=== PATIENT | male | born 1970 ===

== ENCOUNTER 2017-09-25 18:17 | Emergency (ER) | payer OTHER ==
[2017-09-25 18:46] VITALS: BP 136/70; PULSE 89; RESP 20; TEMP 100.6; O2SAT 99
--- NOTE | 2017-09-25 18:59 | ED PDOC ---
HPI: General Adult Time Seen by Provider: 09/25/17 18:21 Chief Complaint (Nursing): Flu-like Symptoms Chief Complaint (Provider): Flu-Like Symptoms History Per: Patient History/Exam Limitations: no limitations Onset/Duration Of Symptoms: Days (x1) Have you had recent travel within the past 21 days to any of the following countries: [place], [place], [place] or [place]?: No Current Symptoms Are (Timing): Still Present Additional Complaint(s): 46 year old male presents to ED with complaints of flu-like symptoms x1 day and a past medical history of HTN. (+) cough, congestion, and fever. (-) hemoptysis , chest pain, SOB, nausea, vomiting, or abdominal pain. Notes that one of his children was recently diagnosed with the flu. States that he has been taking samples of Tamiflu that his acquired from her job. Notes taking 2 and that there are 6 left at home. PCP: Non CPH Past Medical History Reviewed: Historical Data, Nursing Documentation, Vital Signs Vital Signs: Last Vital Signs Temp 100.6 F H 09/25/17 18:44 Pulse 89 09/25/17 18:44 Resp 20 09/25/17 18:44 BP 136/70 09/25/17 18:44 Pulse Ox 99 09/25/17 18:59 - Medical History PMH: HTN Denies: No Chronic Diseases - Family History Family History: States: No Known Family Hx - Living Arrangements Living Arrangements: With Family - Social History Drugs: Denies - Immunization History Hx Tetanus Toxoid Vaccination: No Hx Influenza Vaccination: No Hx Pneumococcal Vaccination: No - Home Medications Home Medications: Ambulatory Orders Medication Instructions Recorded Oseltamivir [Tamiflu] 75 mg PO BID #4 cap 09/25/17 - Allergies Allergies/Adverse Reactions: Allergies Allergy/AdvReac Type Severity Reaction Status Date / Time No Known Allergies Allergy Unverified 06/16/17 06:47 Review of Systems ROS Statement: Except As Marked, All Systems Reviewed And Found Negative Constitutional: Positive for: Fever ENT: Positive for: Nose Congestion Cardiovascular: Negative for: Chest Pain Respiratory: Positive for: Cough. Negative for: Shortness of Breath, Hemoptysis Gastrointestinal: Negative for: Nausea, Vomiting, Abdominal Pain Physical Exam - Reviewed Nursing Documentation Reviewed: Yes Vital Signs Reviewed: Yes - Physical Exam Appears: Positive for: Non-toxic, No Acute Distress Skin: Positive for: Normal Color, Warm, Dry Eye Exam: Positive for: Normal appearance, EOMI, PERRL ENT: Positive for: Normal ENT Inspection Neck: Positive for: Normal, Painless ROM, Supple Cardiovascular/Chest: Positive for: Regular Rate, Rhythm Respiratory: Positive for: Normal Breath Sounds. Negative for: Respiratory Distress Gastrointestinal/Abdominal: Positive for: Soft. Negative for: Tenderness Neurologic/Psych: Positive for: Alert, Oriented - ECG O2 Sat by Pulse Oximetry: 99 (RA) Pulse Ox Interpretation: Normal Medical Decision Making Medical Decision Makin Initial impression: influenza-like illness Scribe Attestation: Documented by Rehsma Enriquez, acting as a scribe for Mauro Garcia PA-C. Provider Scribe Attestation: All medical record entries made by the Scribe were at my direction and personally dictated by me. I have reviewed the chart and agree that the record accurately reflects my personal performance of the history, physical exam, medical decision making, and the department course for this patient. I have also personally directed, reviewed, and agree with the discharge instructions and disposition. Disposition - Clinical Impression Clinical Impression: Influenza-like symptoms - Patient ED Disposition Is Patient to be Admitted: No - Disposition Disposition: Routine/Home Disposition Time: 18:58 Condition: STABLE Prescriptions: Oseltamivir [Tamiflu] 75 mg PO BID #4 cap Instructions: Influenza (ED) Forms: [facility] ED School/Work Excuse
== END 2017-09-25 20:25 | disposition home or self-care (01) ==
LOC: H.ER 18:17
DX: R50.9 Fever, unspecified (principal); R05 Cough; I10 Essential (primary) hypertension

== ENCOUNTER 2018-01-20 20:58 | Emergency (ER) | payer OTHER ==
[2018-01-20 21:40] VITALS: BP 137/78; PULSE 78; RESP 18; TEMP 98.6; O2SAT 99
--- NOTE | 2018-01-20 22:20 | ED PDOC ---
HPI: Skin/Bite Injury Time Seen by Provider: 01/20/18 21:43 Chief Complaint (Nursing): Bite Chief Complaint (Provider): Left 4th digit infection x 2 days History Per: Patient History/Exam Limitations: no limitations Onset/Duration Of Symptoms: Days Current Symptoms Are (Timing): Still Present Quality Of Symptoms: Painful, Draining Severity: Mild Pain Scale Rating Of: 2 Additional Complaint(s): 47 yo male with HTN presents with abscess on the left 4th digit. Pt states he has been going warm soaks with epison salt and topical antibiotic ointment. Pt states it has been draining. Pt states it has improved. Pt reports waking up with the swelling. Past Medical History Reviewed: Historical Data, Nursing Documentation, Vital Signs Vital Signs: Last Vital Signs Temp 98.6 F 01/20/18 21:36 Pulse 78 01/20/18 21:36 Resp 18 01/20/18 21:36 BP 137/78 01/20/18 21:36 Pulse Ox 99 01/20/18 21:36 - Medical History PMH: HTN - Surgical History Surgical History: No Surg Hx - Family History Family History: States: No Known Family Hx - Living Arrangements Living Arrangements: With Family - Social History Current smoker - smoking cessation education provided: No - Immunization History Hx Tetanus Toxoid Vaccination: No Hx Influenza Vaccination: No Hx Pneumococcal Vaccination: No - Home Medications Home Medications: Ambulatory Orders Medication Instructions Recorded Oseltamivir [Tamiflu] 75 mg PO BID #4 cap 09/25/17 Clindamycin [Cleocin] 300 mg PO QID #40 cap 01/20/18 - Allergies Allergies/Adverse Reactions: Allergies Allergy/AdvReac Type Severity Reaction Status Date / Time No Known Allergies Allergy Unverified 06/16/17 06:47 Review of Systems ROS Statement: Except As Marked, All Systems Reviewed And Found Negative Constitutional: Negative for: Fever, Chills Skin: Positive for: Other Physical Exam - Reviewed Nursing Documentation Reviewed: Yes Vital Signs Reviewed: Yes - Physical Exam Appears: Positive for: Well, Non-toxic, No Acute Distress Head Exam: Positive for: ATRAUMATIC, NORMAL INSPECTION, NORMOCEPHALIC Skin: Positive for: Warm. Negative for: Normal Color ((+) abscess - Drainage left 4th digit, posterior ) Eye Exam: Positive for: Normal appearance ENT: Positive for: Normal ENT Inspection Neck: Positive for: Normal, Painless ROM Respiratory: Negative for: Accessory Muscle Use, Respiratory Distress Back: Positive for: Normal Inspection Extremity: Positive for: Normal ROM Neurologic/Psych: Positive for: Alert, Oriented - ECG O2 Sat by Pulse Oximetry: 99 Medical Decision Making Medical Decision Making: Discussed continuing warm soaks and oral antibiotics. Return for worsening symptoms. Disposition - Clinical Impression Clinical Impression: Abscess - Patient ED Disposition Is Patient to be Admitted: No Counseled Patient/Family Regarding: Diagnosis, Need For Followup, Rx Given - Disposition Disposition: Routine/Home Disposition Time: 22:20 Condition: STABLE Prescriptions: Clindamycin [Cleocin] 300 mg PO QID #40 cap Instructions: Skin Abscess
== END 2018-01-20 22:24 | disposition home or self-care (01) ==
LOC: H.ER 20:58
DX: L02.512 Cutaneous abscess of left hand (principal); I10 Essential (primary) hypertension